=== PATIENT | female | born 2000 | race Caucasian/White ===

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

== ENCOUNTER 2018-02-20 14:55 | Emergency (ER) | payer BC, MEDICAID ==
[2018-02-20] MEDS ORDERED: predniSONE TAB* 20 MG PO ONE (15:45)
[2018-02-20] MEDS ORDERED: Albuterol/Ipratropium NEB.SOL* Albuterol 2.5 MG/Ipratropium 0.5 MG 3 ML INH ONE (15:45)
[2018-02-20] MEDS ORDERED: Azithromycin TAB* 250 MG PO ONE (16:15)
--- NOTE | 2018-02-20 16:17 | ED ---
Respiratory - HPI Summary HPI Summary: Patient complains of cough, MURILLO, mild SOB, nasal congestion 3 days. Patient has history of asthma, states no relief with inhaler or nebulizer. Cough is dry and nonproductive, worse at night. Denies fever, sore throat, neck stiffness, CP, ear pain, N/V/D, abdominal pain, change in urine, change in BM. Medical history is asthma. - History of Current Complaint Chief Complaint: EDFluSymptoms Stated Complaint: GENERAL ILLNESS Time Seen by Provider: 02/20/18 15:30 Hx Obtained From: Patient Onset/Duration: Gradual Onset Timing: Constant Initial Severity: Moderate Current Severity: Moderate Pain Intensity: 6 Character: Cough (Nonproductive) Sputum Amount: None Aggravating Factor(s): Exertion, Weather Change Alleviating Factor(s): Nothing Associated Signs and Symptoms: SOB, Chest Pain with Cough, Nasal Congestion - Allergy/Home Medications Allergies/Adverse Reactions: Allergies Allergy/AdvReac Type Severity Reaction Status Date / Time No Known Allergies Allergy Verified 02/20/18 15:13 PMH/Surg Hx/FS Hx/Imm Hx Endocrine/Hematology History: Denies: Hx Diabetes Cardiovascular History: Denies: Hx Hypertension Respiratory History: Reports: Hx Asthma Comment Only: Other Respiratory Problems/Disorders - HX OF ASTHMA - Immunization History Date of Tetanus Vaccine: utd Date of Influenza Vaccine: 11/2016 Infectious Disease History: No Infectious Disease History: Denies: Traveled Outside the [place] in Last 30 Days - Family History Known Family History: Negative: Cardiac Disease - Social History Alcohol Use: None Hx Substance Use: No Substance Use Type: Reports: None Substance Use Comment - Amount & Last Used: rarely Smoking Status (MU): Current Every Day Smoker Review of Systems Constitutional: Negative Eyes: Negative Positive: Nasal Discharge Cardiovascular: Negative Positive: Shortness Of Breath, Cough Gastrointestinal: Negative Genitourinary: Negative Musculoskeletal: Negative Skin: Negative Positive: Headache Psychological: Normal All Other Systems Reviewed And Are Negative: Yes Physical Exam Triage Information Reviewed: Yes Vital Signs On Initial Exam: Initial Vitals Temp Pulse Resp BP Pulse Ox 97.2 F 84 16 127/65 96 02/20/18 15:12 02/20/18 15:12 02/20/18 15:12 02/20/18 15:12 02/20/18 15:12 Vital Signs Reviewed: Yes Appearance: Positive: Well-Appearing Skin: Positive: Warm Head/Face: Positive: Normal Head/Face Inspection Eyes: Positive: Normal ENT: Positive: Pharyngeal erythema, TMs normal, Uvula midline. Negative: Tonsillar swelling, Tonsillar exudate, Trismus, Muffled voice, Hoarse voice Neck: Positive: Supple Respiratory/Lung Sounds: Positive: Clear to Auscultation Cardiovascular: Positive: Normal Abdomen Description: Positive: Nontender Musculoskeletal: Positive: Normal Neurological: Positive: Normal Psychiatric: Positive: Normal AVPU Assessment: Alert - [place] Coma Scale Best Eye Response: 4 - Spontaneous Best Motor Response: 6 - Obeys Commands Best Verbal Response: 5 - Oriented Coma Scale Total: 15 Diagnostics - Vital Signs Vital Signs Temp Pulse Resp BP Pulse Ox 02/20/18 15:12 97.2 F 84 16 127/65 96 - Laboratory Result Diagrams: 02/20/18 17:03 02/20/18 17:03 Lab Statement: Any lab studies that have been ordered have been reviewed, and results considered in the medical decision making process. Disposition - Course Course Of Treatment: Patient complains of cough, MURILLO, mild SOB, nasal congestion 3 days. Patient has history of asthma, states no relief with inhaler or nebulizer. Cough is dry and nonproductive, worse at night. Denies fever, sore throat, neck stiffness, CP, ear pain, N/V/D, abdominal pain, change in urine, change in BM. Medical history is asthma. Vital signs and labs. Labs unremarkable. Chest x-ray positive for. Nebulizer here in the ED with improvement in symptoms. Rx for azithromycin and prednisone. - Diagnoses Provider Diagnoses: Right lower lobe pneumonia Discharge - Sign-Out/Discharge Documenting (check all that apply): Patient Departure - Discharge Plan Condition: Stable Disposition: HOME Prescriptions: Azithromycin 250 mg PO DAILY 4 Days #4 tablet predniSONE TAB* [Deltasone 20 MG TAB*] 40 mg PO DAILY 5 Days #10 tab Patient Education Materials: Pneumonia (ED) Referrals: No Primary Care Phys,NOPCP [Primary Care Provider] - [facility] [Outside] Additional Instructions: Taken antibiotics as directed. Use your inhaler and nebulizer as directed. Follow-up with primary care. Return to the ED for any new or worsening symptoms - Billing Disposition and Condition Condition: STABLE Disposition: Home
[2018-02-20 17:11] LABS: ABS Basophils 0 10^3/ul (0-0.2); ABS Eosinophils 0.1 10^3/ul (0-0.6); ABS Lymphocytes 1.6 10^3/ul (1.0-4.8); ABS Monocytes 0.9 10^3/ul (0-0.8); ABS Neutrophils 3.9 10^3/ul (1.5-7.7); ABS Nucleated RBC 0 10^3/ul; Hematocrit 40 % (35-47); Lymphocyte % 24.6 % (25-47); Mean Corpuscular HGB Conc 33 g/dl (31-36); Mean Corpuscular Hemoglobin 25 pg (27-31); Mean Corpuscular Volume 77 fL (80-97); Mean Platelet Volume 8.5 fL (7.4-10.4); Nucleated Red Blood Cells % 0.1; Platelet Count 315 10^3/ul (150-450); Red Blood Count 5.19 10^6/ul (4.00-5.40); Red Cell Distribution Width 16 % (10.5-15); White Blood Count 6.5 10^3/ul (3.5-10.8)
[2018-02-20 17:31] LABS: EGFR Non-African American 88.6 (>60)
[2018-02-20 18:13] VITALS: BP 128/76
== END 2018-02-20 18:07 | disposition home or self-care (01) ==
LOC: ED 14:55
DX: J18.9 Pneumonia, unspecified organism (principal); R51 Headache; R06.02 Shortness of breath; R05 Cough; F17.210 Nicotine dependence, cigarettes, uncomplicated
CPT/HCPCS: 36415; 71046; 80053; 83605; 85025; 86140; 87040; 99281; A9270-GY; J7512

== ENCOUNTER 2018-02-22 16:34 | Emergency (ER) | payer BC ==
[2018-02-22 18:42] LABS: ABS Basophils 0 10^3/ul (0-0.2); ABS Eosinophils 0 10^3/ul (0-0.6); ABS Lymphocytes 1.3 10^3/ul (1.0-4.8); ABS Monocytes 0.5 10^3/ul (0-0.8); ABS Neutrophils 8.8 10^3/ul (1.5-7.7); ABS Nucleated RBC 0 10^3/ul; Eosinophil % 0.1 % (0-6); Hematocrit 39 % (35-47); Hemoglobin 12.6 g/dl (12.0-16.0); Lymphocyte % 12.6 % (25-47); Mean Corpuscular HGB Conc 33 g/dl (31-36); Mean Corpuscular Hemoglobin 25 pg (27-31); Mean Corpuscular Volume 77 fL (80-97); Mean Platelet Volume 8.5 fL (7.4-10.4); Nucleated Red Blood Cells % 0.1; Platelet Count 292 10^3/ul (150-450); Red Blood Count 5.02 10^6/ul (4.00-5.40); Red Cell Distribution Width 16 % (10.5-15); White Blood Count 10.7 10^3/ul (3.5-10.8)
[2018-02-22 19:03] LABS: EGFR Non-African American 82.8 (>60)
[2018-02-22] MEDS ORDERED: Levofloxacin 750 MG IVPREMIX(* 750 MG/150 ML BAG IVPB ONE (21:37)
[2018-02-22] MEDS ORDERED: NS 0.9% 1000 ML* 1,000 ML IV ONE (21:37)
[2018-02-22] MEDS ORDERED: Metoclopramide IV* 5 MG/ML 2 ML VIAL IV SLOW PU ONE (21:37)
--- NOTE | 2018-02-23 00:55 | ED ---
Complex/Multi-Sys Presentation - HPI Summary HPI Summary: A 17 y/o female presents to the ED c/o fever at 99 since today, 02/22/2018. She also c/o N/V/D. She states that she usually takes Zithromax and Prednisone because she believes it is the cause of her pain. Her LNMP was 02/12/2018. - History Of Current Complaint Chief Complaint: EDGeneral Time Seen by Provider: 02/22/18 21:13 Hx Obtained From: Patient Onset/Duration: Sudden Onset, Lasting Hours, Still Present Timing: Constant Severity Currently: Moderate Severity Initially: Moderate Associated Signs And Symptoms: Positive: Nausea, Vomiting, Diarrhea - Allergies/Home Medications Allergies/Adverse Reactions: Allergies Allergy/AdvReac Type Severity Reaction Status Date / Time No Known Allergies Allergy Verified 02/20/18 15:13 PMH/Surg Hx/FS Hx/Imm Hx Endocrine/Hematology History: Denies: Hx Diabetes Cardiovascular History: Denies: Hx Hypertension Respiratory History: Reports: Hx Asthma Comment Only: Other Respiratory Problems/Disorders - HX OF ASTHMA - Immunization History Date of Tetanus Vaccine: utd Date of Influenza Vaccine: 11/2016 Infectious Disease History: No Infectious Disease History: Denies: Traveled Outside the [place] in Last 30 Days - Family History Known Family History: Negative: Cardiac Disease - Social History Alcohol Use: None Hx Substance Use: No Substance Use Type: Reports: None Substance Use Comment - Amount & Last Used: rarely Smoking Status (MU): Never Smoked Tobacco Review of Systems Positive: Fever, Other - Positive: loss of apetite Positive: Vomiting, Diarrhea, Nausea All Other Systems Reviewed And Are Negative: Yes Physical Exam - Summary Physical Exam Summary: VITAL SIGNS: Reviewed. GENERAL: Patient is a well-developed and nourished FEMALE who is lying comfortable in the stretcher. Patient is not in any acute respiratory distress. HEAD AND FACE: No signs of trauma. No ecchymosis, hematomas or skull depressions. No sinus tenderness. EYES: PERRLA, EOMI x 2, No injected conjunctiva, no nystagmus. EARS: Hearing grossly intact. Ear canals and tympanic membranes are within normal limits. MOUTH: Oropharynx within normal limits. NECK: Supple, trachea is midline, no adenopathy, no JVD, no carotid bruit, no c- spine tenderness, neck with full ROM. CHEST: Symmetric, no tenderness at palpation LUNGS: Clear to auscultation bilaterally. No wheezing or crackles. CVS: Regular rate and rhythm, S1 and S2 present, no murmurs or gallops appreciated. ABDOMEN: Soft, non-tender. No signs of distention. No rebound no guarding, and no masses palpated. Bowel sounds are normal. EXTREMITIES: FROM in all major joints, no edema, no cyanosis or clubbing. NEURO: Alert and oriented x 3. No acute neurological deficits. Speech is normal and follows commands. SKIN: Dry and warm Triage Information Reviewed: Yes Vital Signs On Initial Exam: Initial Vitals Temp Pulse Resp BP Pulse Ox 97.6 F 98 18 131/60 97 02/22/18 16:45 02/22/18 16:45 02/22/18 16:45 02/22/18 16:45 02/22/18 16:45 Vital Signs Reviewed: Yes Diagnostics - Vital Signs Vital Signs Temp Pulse Resp BP Pulse Ox 02/22/18 19:40 99.1 F 105 18 146/74 97 02/22/18 16:45 97.6 F 98 18 131/60 97 - Laboratory Lab Results: Lab Results 02/22/18 02/22/18 02/22/18 Range/Units 18:11 18:11 18:11 WBC 10.7 (3.5-10.8) 10^3/ul RBC 5.02 (4.00-5.40) 10^6/ul Hgb 12.6 (12.0-16.0) g/dl Hct 39 (35-47) % MCV 77 L (80-97) fL MCH 25 L (27-31) pg MCHC 33 (31-36) g/dl RDW 16 H (10.5-15) % Plt Count 292 (150-450) 10^3/ul MPV 8.5 (7.4-10.4) fL Neut % (Auto) 82.6 (38-83) % Lymph % (Auto) 12.6 L (25-47) % Adams % (Auto) 4.4 (0-7) % Eos % (Auto) 0.1 (0-6) % Baso % (Auto) 0.3 (0-2) % Absolute Neuts (auto) 8.8 H (1.5-7.7) 10^3/ul Absolute Lymphs (auto) 1.3 (1.0-4.8) 10^3/ul Absolute Monos (auto) 0.5 (0-0.8) 10^3/ul Absolute Eos (auto) 0 (0-0.6) 10^3/ul Absolute Basos (auto) 0 (0-0.2) 10^3/ul Absolute Nucleated RBC 0 10^3/ul Nucleated RBC % 0.1 Sodium 136 (135-145) mmol/L Potassium 3.6 (3.5-5.0) mmol/L Chloride 101 (101-111) mmol/L Carbon Dioxide 26 (22-32) mmol/L Anion Gap 9 (2-11) mmol/L BUN 9 (6-24) mg/dL Creatinine 0.88 (0.51-0.95) mg/dL Est GFR ( Amer) 100.2 (>60) Est GFR (Non-Af Amer) 82.8 (>60) BUN/Creatinine Ratio 10.2 (8-20) Glucose 128 H (70-100) mg/dL Lactic Acid 1.9 (0.5-2.0) mmol/L Calcium 8.9 (8.6-10.3) mg/dL Magnesium 1.7 L (1.9-2.7) mg/dL Total Bilirubin 0.20 (0.2-1.0) mg/dL AST 19 (13-39) U/L ALT 20 (7-52) U/L Alkaline Phosphatase 77 (34-104) U/L C-Reactive Protein 24.44 H (<8.01) mg/L Total Protein 7.4 (6.4-8.9) g/dL Albumin 3.8 (3.2-5.2) g/dL Globulin 3.6 (2-4) g/dL Albumin/Globulin Ratio 1.1 (1-3) Procalcitonin (<0.6) ng/mL Beta HCG, Quant < 0.60 mIU/mL 02/22/18 Range/Units 18:11 WBC (3.5-10.8) 10^3/ul RBC (4.00-5.40) 10^6/ul Hgb (12.0-16.0) g/dl Hct (35-47) % MCV (80-97) fL MCH (27-31) pg MCHC (31-36) g/dl RDW (10.5-15) % Plt Count (150-450) 10^3/ul MPV (7.4-10.4) fL Neut % (Auto) (38-83) % Lymph % (Auto) (25-47) % Adams % (Auto) (0-7) % Eos % (Auto) (0-6) % Baso % (Auto) (0-2) % Absolute Neuts (auto) (1.5-7.7) 10^3/ul Absolute Lymphs (auto) (1.0-4.8) 10^3/ul Absolute Monos (auto) (0-0.8) 10^3/ul Absolute Eos (auto) (0-0.6) 10^3/ul Absolute Basos (auto) (0-0.2) 10^3/ul Absolute Nucleated RBC 10^3/ul Nucleated RBC % Sodium (135-145) mmol/L Potassium (3.5-5.0) mmol/L Chloride (101-111) mmol/L Carbon Dioxide (22-32) mmol/L Anion Gap (2-11) mmol/L BUN (6-24) mg/dL Creatinine (0.51-0.95) mg/dL Est GFR ( Amer) (>60) Est GFR (Non-Af Amer) (>60) BUN/Creatinine Ratio (8-20) Glucose (70-100) mg/dL Lactic Acid (0.5-2.0) mmol/L Calcium (8.6-10.3) mg/dL Magnesium (1.9-2.7) mg/dL Total Bilirubin (0.2-1.0) mg/dL AST (13-39) U/L ALT (7-52) U/L Alkaline Phosphatase (34-104) U/L C-Reactive Protein (<8.01) mg/L Total Protein (6.4-8.9) g/dL Albumin (3.2-5.2) g/dL Globulin (2-4) g/dL Albumin/Globulin Ratio (1-3) Procalcitonin < 0.1 (<0.6) ng/mL Beta HCG, Quant mIU/mL Result Diagrams: 02/22/18 18:11 02/22/18 18:11 Lab Statement: Any lab studies that have been ordered have been reviewed, and results considered in the medical decision making process. - Radiology CXR Radiology Interpretation Completed By: ED Physician - Right lower lung infiltrate. No change from before. Pending official report. Complex Multi-Symp Course/Dx Course Of Treatment: A 17 y/o female presents to the ED c/o fever at 99 since today, 02/22/2018. Her PE was normal. Her lab results showed her lymph % at 12.6 L. Her CXR revealed Right lower lung infiltrate - No change from before. Dx: pneumonia. Pt will be discharged home and is agreeable to this plan. - Diagnoses Provider Diagnoses: PNA (pneumonia) Discharge - Sign-Out/Discharge Documenting (check all that apply): Patient Departure - DC - Discharge Plan Condition: Stable Disposition: HOME Prescriptions: Levofloxacin TAB* [Levaquin TAB*] 750 mg PO DAILY #7 tab Metoclopramide TAB* [Reglan TAB*] 10 mg PO Q6H PRN #20 tab PRN Reason: Nausea/Vomiting Patient Education Materials: Pneumonia (ED) Referrals: [facility] [place] [facility] [place] [Outside] (1-2 days) Additional Instructions: RETURN TO THE EMERGENCY DEPARTMENT FOR CHANGING OR WORSENING SYMPTOMS. FOLLOW UP WITH PCP IN 1-2 DAYS. - Attestation Statements Document Initiated by Scribe: Yes Documenting Scribe: Marcial Espinoza Provider For Whom Scribe is Documenting (Include Credential): Jude Elliott MD Scribe Attestation: Marcial Pimentel, scribed for Jude Elliott MD on 02/23/18 at 0059.
[2018-02-23 00:56] VITALS: BP 133/69
== END 2018-02-23 00:55 | disposition home or self-care (01) ==
LOC: ED 16:34
DX: J18.9 Pneumonia, unspecified organism (principal); R11.2 Nausea with vomiting, unspecified; R19.7 Diarrhea, unspecified
CPT/HCPCS: 36415; 71046; 80053; 83605; 83735; 84145; 84702; 85025; 86140; 96365; 96375; 99282; J2765

== ENCOUNTER 2019-01-22 12:08 | Inpatient (IN) | payer BC, MEDICAID ==
--- NOTE | 2019-01-22 12:41 | UC ---
Psychiatric Complaint HPI - History Of Current Complaint Chief Complaint: EDSuicidal Stated Complaint: 945/MHE PER PT Time Seen by Provider: 01/22/19 12:22 - Allergies/Home Medications Allergies/Adverse Reactions: Allergies Allergy/AdvReac Type Severity Reaction Status Date / Time No Known Allergies Allergy Verified 02/20/18 15:13 Home Medications: Home Medications NK [No Home Medications Reported] 01/22/19 [History Confirmed 01/22/19] PMH/Surg Hx/FS Hx/Imm Hx - Family History Known Family History: Negative: Cardiac Disease - Social History Alcohol Use: None Substance Use Type: None Substance Use Comment - Amount & Last Used: rarely Smoking Status (MU): Never Smoked Tobacco Physical Exam - Summary Physical Exam Summary: VITAL SIGNS: Reviewed. GENERAL: Patient is a well-developed and nourished male who is lying comfortable in the stretcher. Patient is not in any acute respiratory distress. HEAD AND FACE: No signs of trauma. No ecchymosis, hematomas or skull depressions. No sinus tenderness. EYES: PERRLA, EOMI x 2, No injected conjunctiva, no nystagmus. EARS: Hearing grossly intact. Ear canals and tympanic membranes are within normal limits. MOUTH: Oropharynx within normal limits. NECK: Supple, trachea is midline, no adenopathy, no JVD, no carotid bruit, no c- spine tenderness, neck with full ROM. CHEST: Symmetric, no tenderness at palpation. LUNGS: Clear to auscultation bilaterally. No wheezing or crackles. CVS: Regular rate and rhythm, S1 and S2 present, no murmurs or gallops appreciated. ABDOMEN: Soft, non-tender. No signs of distention. No rebound, no guarding, and no masses palpated. Bowel sounds are normal. EXTREMITIES: FROM in all major joints, no edema, no cyanosis or clubbing. NEURO: Alert and oriented x 3. No acute neurological deficits. Speech is normal and follows commands. SKIN: Dry and warm. PSYCH: Depressed, quiet, and denies any suicidal thoughts or plan. No homicidal thoughts or plan. No signs of psychosis or pressure speech. No tangential speech. Triage Information Reviewed: Yes Vital Signs: Initial Vital Signs Temp 97.6 F 01/22/19 12:10 Pulse 86 01/22/19 12:10 Resp 16 01/22/19 12:10 BP 133/84 10/07/19 12:10 Pulse Ox 99 01/22/19 12:10 Vital Signs Reviewed: Yes Procedures - Sedation Patient Received Moderate/Deep Sedation with Procedure: No Re-Evaluation - Re-Evaluation First Eval Re-Evaluation Time: 12:40 Change: Unchanged Comment: Patient is medically clear for mental health evaluation. Psych Complaint Course/Dx - Course Course Of Treatment: Blood work w/o a significant abnormality. She is medically cleared. She is awaiting a MHE. Patient is hemodynamically stable and A+O x 3. Patient was assessed by Dr. Valenzuela who agrees to admit the patient to his services with a diagnosis of depressive episode. - Differential Dx/Diagnosis Provider Diagnosis: Depression Discharge ED - Discharge Plan Condition: Stable Disposition: ADMITTED TO [facility] - Billing Disposition and Condition Condition: STABLE Disposition: Admitted to [facility] - Attestation Statements Document Initiated by Scribe: Yes Documenting Scribe: Carla Lacy Provider For Whom Scribe is Documenting (Include Credential): Dr. Christiano Moreno MD Scribe Attestation: ICarla, scribed for Dr. Christiano Moreno MD on 01/22/19 at 1933. Status of Scribe Document: Viewed
[2019-01-22 13:04] LABS: ABS Basophils 0.1 10^3/ul (0-0.2); ABS Eosinophils 0.2 10^3/ul (0-0.6); ABS Lymphocytes 2.2 10^3/ul (1.0-4.8); ABS Monocytes 0.7 10^3/ul (0-0.8); ABS Neutrophils 7.2 10^3/ul (1.5-7.7); Eosinophil % 1.6 %; Hematocrit 37 % (35-47); Hemoglobin 12.1 g/dL (12.0-16.0); Lymphocyte % 21.3 %; Mean Corpuscular HGB Conc 33 g/dL (31-36); Mean Corpuscular Hemoglobin 25 pg (27-31); Mean Corpuscular Volume 75 fL (80-97); Mean Platelet Volume 8.1 fL (7.4-10.4); Platelet Count 359 10^3/uL (150-450); Red Cell Distribution Width 15 % (10-15); White Blood Count 10.3 10^3/uL (3.5-10.8)
[2019-01-22 13:04] LABS: Urine Appearance Clear; Urine Bilirubin Negative (Negative); Urine Blood Negative (Negative); Urine Color Yellow; Urine Glucose Negative (Negative); Urine Ketones Negative (Negative); Urine Nitrite Negative (Negative); Urine Protein Negative (Negative); Urine Specific Gravity 1.024 (1.010-1.030); Urine Urobilinogen Negative (Negative)
[2019-01-22 13:23] LABS: Albumin 3.9 g/dL (3.2-5.2); Albumin/Globulin Ratio 1.3 (1-3); Alkaline Phosphatase 97 U/L (34-104); Anion Gap 8 mmol/L (2-11); BUN/Creatinine Ratio 18.1 (8-20); Blood Urea Nitrogen 13 mg/dL (6-24); CO2 Carbon Dioxide 24 mmol/L (22-32); Calcium 8.9 mg/dL (8.6-10.3); Chloride 106 mmol/L (101-111); EGFR Non-African American 103.3 (>60); Globulin 3.1 g/dL (2-4); Glucose 102 mg/dL (70-100); Potassium 3.8 mmol/L (3.5-5.0); Sodium 138 mmol/L (135-145)
[2019-01-22 13:24] LABS: Urine Benzodiazepine Screen None Detected (None Detect); Urine Opiates Screen None Detected (None Detect)
[2019-01-22 13:24] LABS: ALT 15 U/L (7-52); AST 28 U/L (13-39)
[2019-01-22 13:31] LABS: Acetaminophen < 15 mcg/mL; Alcohol < 10 mg/dL (<10); Salicylate < 2.50 mg/dL (<30)
[2019-01-22 13:43] LABS: TSH (Thyroid Stimulating Horm) 2.71 mcIU/mL (0.34-5.60)
[2019-01-22] MEDS ORDERED: Al Hydrox/Mg Hydrox/Simet LIQ* 30 ML UDC PO PRN (14:17)
[2019-01-22] MEDS ORDERED: Acetaminophen TAB* 325 MG PO PRN (14:17)
[2019-01-22] MEDS ORDERED: hydrOXYzine HCL TAB* 50 MG PO PRN (14:18)
--- NOTE | 2019-01-22 20:30 | ED ---
Psychiatric Complaint - HPI Summary HPI Summary: The patient is a 18 y/o F presenting to [facility] with a chief complaint of suicidal ideation today. She reports that her feelings have been gradually worsening. She doesnt have a plan, but she has had plans before this. She also notes she is currently stressed out, but there is not one particular reason for her symptoms now. Currently, she is not in any pain. PMHx: anxiety, depression, panic disorder, PTSD, asthma, intestinal surgery when baby. Nonsmoker, no EtOH, no substance use. Medications reviewed. Allergies noted. - History Of Current Complaint Chief Complaint: EDSuicidal Time Seen by Provider: 01/22/19 12:22 Hx Obtained From: Patient Onset/Duration: Gradual Onset, Lasting Days, Still Present Timing: Days Severity Initially: Mild Severity Currently: Moderate Character: Depressed, Anxious Aggravating Factor(s): Nothing Alleviating Factor(s): Nothing Related History: Positive For: Prior Psychiatric Issues - anxiety, depression, panic disorder, PTSD Has Suicidal: Reports: Thoughts. Denies: With A Plan - Allergies/Home Medications Allergies/Adverse Reactions: Allergies Allergy/AdvReac Type Severity Reaction Status Date / Time No Known Allergies Allergy Verified 02/20/18 15:13 Home Medications: Home Medications NK [No Home Medications Reported] 01/22/19 [History Confirmed 01/22/19] PMH/Surg Hx/FS Hx/Imm Hx Endocrine/Hematology History: Denies: Hx Diabetes Cardiovascular History: Denies: Hx Hypercholesterolemia, Hx Hypertension Respiratory History: Reports: Hx Asthma - pt states she has "rescue inhaler" Comment Only: Other Respiratory Problems/Disorders - HX OF ASTHMA Sensory History: Reports: Hx Contacts or Glasses - pt states, "I have reading glasses." Denies: Hx Hearing Aid Opthamlomology History: Reports: Hx Contacts or Glasses - pt states, "I have reading glasses." Psychiatric History: Reports: Hx Anxiety - pt states, "sometimes", Hx Depression - pt states, "sometimes", Hx Panic Disorder, Hx Post Traumatic Stress Disorder Denies: Hx of Violent Episodes Against Others - Surgical History Surgical History: Yes Surgery Procedure, Year, and Place: Pt states she had corrective surgery on her intestines shortly after . - Immunization History Date of Tetanus Vaccine: utd Date of Influenza Vaccine: 11/2016 Infectious Disease History: No Infectious Disease History: Denies: Traveled Outside the [place] in Last 30 Days - Family History Known Family History: Negative: Cardiac Disease - Social History Alcohol Use: None Hx Substance Use: No Substance Use Type: Reports: None Substance Use Comment - Amount & Last Used: rarely Hx Tobacco Use: No Smoking Status (MU): Never Smoked Tobacco Review of Systems Negative: Fever Psychological: Other - SI without plan, stressed All Other Systems Reviewed And Are Negative: Yes Physical Exam - Summary Physical Exam Summary: VITAL SIGNS: Reviewed. GENERAL: Patient is a well-developed and nourished female who is lying comfortable in the stretcher. Patient is not in any acute respiratory distress. HEAD AND FACE: No signs of trauma. No ecchymosis, hematomas or skull depressions. No sinus tenderness. EYES: PERRLA, EOMI x 2, No injected conjunctiva, no nystagmus. EARS: Hearing grossly intact. Ear canals and tympanic membranes are within normal limits. MOUTH: Oropharynx within normal limits. NECK: Supple, trachea is midline, no adenopathy, no JVD, no carotid bruit, no c- spine tenderness, neck with full ROM. CHEST: Symmetric, no tenderness at palpation. LUNGS: Clear to auscultation bilaterally. No wheezing or crackles. CVS: Regular rate and rhythm, S1 and S2 present, no murmurs or gallops appreciated. ABDOMEN: Soft, non-tender. No signs of distention. No rebound, no guarding, and no masses palpated. Bowel sounds are normal. EXTREMITIES: FROM in all major joints, no edema, no cyanosis or clubbing. NEURO: Alert and oriented x 3. No acute neurological deficits. Speech is normal and follows commands. SKIN: Dry and warm. PSYCH: Depressed, quiet, and states suicidal thoughts without a plan. No homicidal thoughts or plan. No signs of psychosis or pressure speech. No tangential speech. Triage Information Reviewed: Yes Vital Signs On Initial Exam: Initial Vitals Temp Pulse Resp BP Pulse Ox 97.6 F 86 16 133/84 99 01/22/19 12:10 01/22/19 12:10 01/22/19 12:10 01/22/19 12:10 01/22/19 12:10 Vital Signs Reviewed: Yes Procedures - Sedation Patient Received Moderate/Deep Sedation with Procedure: No Diagnostics - Vital Signs Vital Signs Temp Pulse Resp BP Pulse Ox 01/22/19 12:10 97.6 F 86 16 133/84 99 - Laboratory Lab Results: Lab Results 01/22/19 01/22/19 01/22/19 Range/Units 12:46 12:46 12:51 WBC 10.3 (3.5-10.8) 10^3/uL RBC 4.90 H (3.70-4.87) 10^6 /uL Hgb 12.1 (12.0-16.0) g/dL Hct 37 (35-47) % MCV 75 L (80-97) fL MCH 25 L (27-31) pg MCHC 33 (31-36) g/dL RDW 15 (10-15) % Plt Count 359 (150-450) 10^3/uL MPV 8.1 (7.4-10.4) fL Neut % (Auto) 69.5 % Lymph % (Auto) 21.3 % Gilmer % (Auto) 6.9 % Eos % (Auto) 1.6 % Baso % (Auto) 0.7 % Absolute Neuts (auto) 7.2 (1.5-7.7) 10^3/ul Absolute Lymphs (auto) 2.2 (1.0-4.8) 10^3/ul Absolute Monos (auto) 0.7 (0-0.8) 10^3/ul Absolute Eos (auto) 0.2 (0-0.6) 10^3/ul Absolute Basos (auto) 0.1 (0-0.2) 10^3/ul Absolute Nucleated RBC 0.0 10^3/ul Nucleated RBC % 0.0 Sodium (135-145) mmol/L Potassium (3.5-5.0) mmol/L Chloride (101-111) mmol/L Carbon Dioxide (22-32) mmol/L Anion Gap (2-11) mmol/L BUN (6-24) mg/dL Creatinine (0.51-0.95) mg/dL Est GFR ( Amer) (>60) Est GFR (Non-Af Amer) (>60) BUN/Creatinine Ratio (8-20) Glucose (70-100) mg/dL Calcium (8.6-10.3) mg/dL Total Bilirubin (0.2-1.0) mg/dL AST (13-39) U/L ALT (7-52) U/L Alkaline Phosphatase (34-104) U/L Total Protein (6.4-8.9) g/dL Albumin (3.2-5.2) g/dL Globulin (2-4) g/dL Albumin/Globulin Ratio (1-3) TSH (0.34-5.60) mcIU/mL Urine Color Yellow Urine Appearance Clear Urine pH 5.0 (5-9) Ur Specific [place] 1.024 (1.010-1.030) Urine Protein Negative (Negative) Urine Ketones Negative (Negative) Urine Blood Negative (Negative) Urine Nitrate Negative (Negative) Urine Bilirubin Negative (Negative) Urine Urobilinogen Negative (Negative) Ur Leukocyte Esterase Negative (Negative) Urine Glucose Negative (Negative) Urine Ascorbic Acid * A (Negative) Salicylates (<30) mg/dL Urine Opiates Screen None detected (None Detect) Acetaminophen mcg/mL Ur Barbiturates Screen None detected (None Detect) Ur Phencyclidine Scrn None detected (None Detect) Ur Amphetamines Screen None detected (None Detect) U Benzodiazepines Scrn None detected (None Detect) Urine Cocaine Screen None detected (None Detect) U Cannabinoids Screen None detected (None Detect) Serum Alcohol (<10) mg/dL 01/22/19 Range/Units 12:55 WBC (3.5-10.8) 10^3/uL RBC (3.70-4.87) 10^6 /uL Hgb (12.0-16.0) g/dL Hct (35-47) % MCV (80-97) fL MCH (27-31) pg MCHC (31-36) g/dL RDW (10-15) % Plt Count (150-450) 10^3/uL MPV (7.4-10.4) fL Neut % (Auto) % Lymph % (Auto) % Gilmer % (Auto) % Eos % (Auto) % Baso % (Auto) % Absolute Neuts (auto) (1.5-7.7) 10^3/ul Absolute Lymphs (auto) (1.0-4.8) 10^3/ul Absolute Monos (auto) (0-0.8) 10^3/ul Absolute Eos (auto) (0-0.6) 10^3/ul Absolute Basos (auto) (0-0.2) 10^3/ul Absolute Nucleated RBC 10^3/ul Nucleated RBC % Sodium 138 (135-145) mmol/L Potassium 3.8 (3.5-5.0) mmol/L Chloride 106 (101-111) mmol/L Carbon Dioxide 24 (22-32) mmol/L Anion Gap 8 (2-11) mmol/L BUN 13 (6-24) mg/dL Creatinine 0.72 (0.51-0.95) mg/dL Est GFR ( Amer) 125.0 (>60) Est GFR (Non-Af Amer) 103.3 (>60) BUN/Creatinine Ratio 18.1 (8-20) Glucose 102 H (70-100) mg/dL Calcium 8.9 (8.6-10.3) mg/dL Total Bilirubin 0.30 (0.2-1.0) mg/dL AST 28 (13-39) U/L ALT 15 (7-52) U/L Alkaline Phosphatase 97 (34-104) U/L Total Protein 7.0 (6.4-8.9) g/dL Albumin 3.9 (3.2-5.2) g/dL Globulin 3.1 (2-4) g/dL Albumin/Globulin Ratio 1.3 (1-3) TSH 2.71 (0.34-5.60) mcIU/mL Urine Color Urine Appearance Urine pH (5-9) Ur Specific [place] (1.010-1.030) Urine Protein (Negative) Urine Ketones (Negative) Urine Blood (Negative) Urine Nitrate (Negative) Urine Bilirubin (Negative) Urine Urobilinogen (Negative) Ur Leukocyte Esterase (Negative) Urine Glucose (Negative) Urine Ascorbic Acid (Negative) Salicylates < 2.50 (<30) mg/dL Urine Opiates Screen (None Detect) Acetaminophen < 15 mcg/mL Ur Barbiturates Screen (None Detect) Ur Phencyclidine Scrn (None Detect) Ur Amphetamines Screen (None Detect) U Benzodiazepines Scrn (None Detect) Urine Cocaine Screen (None Detect) U Cannabinoids Screen (None Detect) Serum Alcohol < 10 (<10) mg/dL Result Diagrams: 01/22/19 12:51 01/22/19 12:55 Lab Statement: Any lab studies that have been ordered have been reviewed, and results considered in the medical decision making process. Re-Evaluation - Re-Evaluation First Eval Re-Evaluation Time: 12:40 Change: Unchanged Comment: Patient is medically clear for mental health evaluation. Course/Dx - Course Assessment/Plan: Patient is a 18 y/o F who has history of anxiety, depression, panic disorder, and PTSD with a chief complaint of suicidality without a plan today. Blood work w/o a significant abnormality. She is medically cleared. She is awaiting a MHE. Patient is hemodynamically stable and A+O x 3. Patient was assessed by Dr. Valenzuela who agrees to admit the patient to his services with a diagnosis of depressive episode. - Differential Dx/Clinical Impression Provider Diagnosis: Depression - Physician Notifications Discussed Care Of Patient With: Joy Jones - mental health superintendent terminal Time Discussed With Above Provider: 14:18 Instructed by Provider To: Other - Joy reports that Dr. Valenzuela, psychiatry, has reviewed the patient's case and has decided to voluntarily admit the patient with diagnosis of depressive episode. Discharge ED - Sign-Out/Discharge Documenting (check all that apply): Patient Departure - Patient is voluntarily admitted. - Discharge Plan Condition: Stable Disposition: [place]CHIATRIC FACILITY[place] [place] - Billing Disposition and Condition Condition: STABLE Disposition: Psychiatric Facility [facility] [place] - Attestation Statements Document Initiated by Scribe: Yes Documenting Scribe: Carla Lacy Provider For Whom Luciano is Documenting (Include Credential): Dr. Christiano Moreno MD Scribe Attestation: Carla Pimentel scribed for Dr. Christiano Moreno MD on 01/23/19 at 1845. Scribe Documentation Reviewed: Yes Provider Attestation: The documentation as recorded by the Carla concepcion accurately reflects the service I personally performed and the decisions made by me, Dr. Christiano Moreno MD Status of Scribe Document: Viewed
[2019-01-23] MEDS ORDERED: Influenza VAC *QUAD* 2019-20* 0.5 ML SYRINGE IM ONE (09:00)
[2019-01-23] MEDS ORDERED: diPHENhydraMINE PO* 25 MG PO PRN (11:02)
[2019-01-23 11:33] LABS: HCG Pregnancy < 0.60 mIU/mL
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
[2019-01-23] MEDS: Escitalopram * 5 MG TAB PO SCH (22:18)
--- NOTE | 2019-01-24 16:32 | PN ---
Subjective - Subjective Date of Service: 01/24/19 Service Type: 20845 Hosp care 15 min low complexity Subjective: Patient reports her mood is "dena." She states she went to sleep easier than usual last night. She endorses worry about considering dropping a class or taking medical leave this semester. She states she feels safe here where "I won 't do anything stupid" and eludes to suicidal ideation. Objective - General Observations Appearance: Well Groomed Stature: Overweight Posture: WNL Eye Contact: Average Behavior/Activity: WNL - Interaction Observations Attitude Towards Examiner: Cooperative Stated Mood: Dysphoric Affect: Blunted Speech Pattern/Tone: Clear, Appropriate, Normal Volume Thought Process: Coherent, Impoverished Perception: WNL Thought Content: Depressive Thought Process: Lethality: Passive Wish, Suicidal Planning Hallucination Type: Denies Delusion Type: Denies - Cognitive Function Orientation: A&O x 4 Level of Consciousness: Alert Cognition: Impaired Attention/Concentration Estimated Intelligence: Normal Insight: WNL Judgment Within Normal Limits: No Ability to Make Reasonable Decisions: Serverely Impaired - Medication Compliance Cooperative with Inpatient Medication Regimen: Yes - Group Participation Participates in Group Activities: Partial Assessment - Assessment Merits Inpatient Hospitalization: For Immediate Safety, For Stabilization Inpatient DSM-V Dx: F43.12 Clinical Impression: 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 due to worsening anxiety, depression and suicidal ideation. She merits hospitalization for immediate safety and stabilization. Plan - Plan Treatment Plan: Name: JAYLIN AVERY Birthdate: 2000 [id number] continue acute intensive psychiatric treatment. may decrease to q30min and allow staff pass and computer use. continue current medications. Medications: Current Medications Acetaminophen (Tylenol Tab*) 650 mg PO Q4H PRN PRN Reason: for pain; or Temp >101 F Al Hydrox/Mg Hydrox/Simethicone (Maalox Plus*) 30 ml PO Q4H PRN PRN Reason: INDIGESTION Diphenhydramine HCl (Benadryl Po*) 25 mg PO BEDTIME PRN PRN Reason: INSOMNIA Escitalopram Oxalate (Lexapro *) 5 mg PO BEDTIME REPLACED BY [facility]; Protocol Last Admin: 01/23/19 22:18 Dose: 5 mg Hydroxyzine HCl (Atarax Tab*) 50 mg PO Q6H PRN PRN Reason: anxiety - Discharge Plan Discharge Plan: Inpatient Hospitalization
[2019-01-24] MEDS: Escitalopram * 5 MG TAB PO SCH (21:25)
--- NOTE | 2019-01-25 17:06 | PN ---
Subjective - Subjective Date of Service: 01/25/19 Service Type: 43991 Hosp care 15 min low complexity Subjective: Patient reports hesitancy regarding medication. She state she would prefer to wait and casualty underwriter validates. Patient notified that therapy and healthy habits are an appropriate beginning of treatment. She denies thoughts of suicide or passive wish. She is interactive and pleasant with staff and peers. Objective - General Observations Appearance: Well Groomed Stature: Overweight Posture: WNL Eye Contact: Average Behavior/Activity: WNL - Interaction Observations Attitude Towards Examiner: Cooperative Stated Mood: Euthymic Affect: Full Speech Pattern/Tone: Clear, Appropriate, Normal Volume Thought Process: Coherent, Goal Directed Perception: WNL Thought Content: WNL Hallucination Type: Denies Delusion Type: Denies - Cognitive Function Orientation: A&O x 4 Level of Consciousness: Alert Cognition: WNL Estimated Intelligence: Normal Insight: WNL Judgment Within Normal Limits: Yes - Medication Compliance Cooperative with Inpatient Medication Regimen: No - Group Participation Participates in Group Activities: Partial Assessment - Assessment Merits Inpatient Hospitalization: For Immediate Safety, For Stabilization, For Discharge Planning Inpatient DSM-V Dx: F43.12 Clinical Impression: 18yo , 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 She merits hospitalization for immediate safety and stabilization. Plan - Plan Treatment Plan: Name: JAYLIN AVERY Birthdate: 2000 [id number] continue acute intensive psychiatric treatment. may decrease to q30min and allow staff pass and computer use. DC escitalopram. Medications: Current Medications Acetaminophen (Tylenol Tab*) 650 mg PO Q4H PRN PRN Reason: for pain; or Temp >101 F Al Hydrox/Mg Hydrox/Simethicone (Maalox Plus*) 30 ml PO Q4H PRN PRN Reason: INDIGESTION Diphenhydramine HCl (Benadryl Po*) 25 mg PO BEDTIME PRN PRN Reason: INSOMNIA Escitalopram Oxalate (Lexapro *) 5 mg PO BEDTIME BAMBI; Protocol Last Admin: 01/24/19 21:25 Dose: Not Given Hydroxyzine HCl (Atarax Tab*) 50 mg PO Q6H PRN PRN Reason: anxiety - Discharge Plan Discharge Plan: Inpatient Hospitalization
[2019-01-25] MEDS: Escitalopram * 5 MG TAB PO SCH (20:36)
[2019-01-26 08:52] LABS: Cholesterol 149 mg/dL; HDL Cholesterol 60.9 mg/dL; LDL Cholesterol 72 mg/dL; Triglycerides 80 mg/dL
[2019-01-26 08:58] LABS: HCG Pregnancy < 0.60 mIU/mL
--- NOTE | 2019-01-26 11:05 | DCNOTE ---
Subjective - Subjective Service Types: [id number] Hosp DC Day Mgmt simple under 30 min Discharge Date: 01/26/19 Subjective: Patient is euthymic with bright affect. She denies SI, passive wish or urges for self harm. She reports desire to return home to [facility] for fall break this week. Patient gave me permission to speak with her mother Rocio and encourages me to speak with her brother due to mother's language barrier. I spoke with her brother, Herbert at [phone]. He states he will be home and that he and the family are supportive of Marguerite. 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 Objective - General Observations Appearance: Well Groomed Stature: Overweight Posture: WNL Eye Contact: Average Behavior/Activity: WNL - Interaction Observations Attitude Towards Examiner: Cooperative Stated Mood: Euthymic Affect: Bright Speech Pattern/Tone: Clear, Appropriate, Normal Volume Thought Process: Coherent, Goal Directed Perception: WNL Thought Content: WNL Hallucination Type: Denies Delusion Type: Denies - Cognitive Function Orientation: A&O x 4 Level of Consciousness: Alert Cognition: WNL Estimated Intelligence: Normal Insight: WNL Judgment Within Normal Limits: No - Medication Compliance Cooperative with Inpatient Medication Regimen: No - Group Participation Participates in Group Activities: Yes DC Assessment - Assessment Clinical Impression: 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 She has stabilized in this setting and denies SI or passive wish. Merits Inpatient Hospitalization: No Clear for Discharge: Adequate Clinical Respons, Acceptable Safety Profile Inpatient DSM-V Dx: F43.12 Discharge Planning - Discharge Planning Discharge Plan: Outpatient Follow Up Outpatient Program: [facility] Medications: Current Medications none Discharge Planning: Prescriptions provided for discharge [] Yes [x] No Follow up care details as per social work arrangements: [facility] Domestic Advocacy Program Patient response to discharge plan: [x] eager for discharge [x] agreeable with discharge plan [] ambivalent about discharge [] disagrees with discharge today
[2019-01-26 11:44] VITALS: BP 137/61
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
== END 2019-01-26 14:20 | disposition home or self-care (01) | DRG 755 ==
LOC: ED 12:08 → BSU 14:17
PROVIDERS: ADMIT Psychiatry & Neurology Psychiatry; ATTEND Psychiatry & Neurology Psychiatry
DX: F43.12 Post-traumatic stress disorder, chronic (principal); R45.851 Suicidal ideations; Z68.43 Body mass index [BMI] 50.0-59.9, adult; J45.909 Unspecified asthma, uncomplicated; D64.9 Anemia, unspecified; E66.9 Obesity, unspecified; Z81.8 Family history of other mental and behavioral disorders
CPT/HCPCS: 36415; 80053; 80061; 80307; 80320; 80329; 81003; 83036; 84443; 84702; 85025; 90686; 99222; 99231; 99238; 99283; G0480